=== PATIENT | male | born 1995 | race Native Hawaiian/Other Pacific Islander ===

== ENCOUNTER 2016-06-01 12:23 | Emergency (ER) | payer BC ==
[~2016-06-01] VITALS: Ht 175.3 cm; Wt 74.8 kg
[2016-06-01 12:31] VITALS: TEMP 98
[2016-06-01 13:35] VITALS: BP 119/70
== END 2016-06-01 13:37 | disposition home or self-care (01) ==
LOC: ED 12:23
DX: J06.9 Acute upper respiratory infection, unspecified (principal); M79.1 Myalgia; M54.5 Low back pain
CPT/HCPCS: 99282

== ENCOUNTER 2016-12-02 10:17 | Outpatient (CLI) | payer BC | END 2016-12-02 10:19 | disposition short-term general hospital (02) | LOC: AMB 10:17 | DX: R22.0 Localized swelling, mass and lump, head (principal); R42 Dizziness and giddiness | CPT/HCPCS: A0425; A0429 ==

== ENCOUNTER 2016-12-02 10:20 | Emergency (ER) | payer BC ==
[~2016-12-02] VITALS: Ht 175.3 cm; Wt 62.6 kg
[2016-12-02 10:31] VITALS: BP 150/79; TEMP 98.4
== END 2016-12-02 10:40 | disposition home or self-care (01) ==
LOC: ED 10:20
DX: K08.89 Other specified disorders of teeth and supporting structures (principal); K04.7 Periapical abscess without sinus
CPT/HCPCS: 99281

== ENCOUNTER 2017-12-13 22:43 | Emergency (ER) | payer OTHER ==
[~2017-12-13] VITALS: Ht 172.7 cm; Wt 62.6 kg
[2017-12-13 23:20] VITALS: BP 150/85; TEMP 98.7
== END 2017-12-13 23:20 | disposition home or self-care (01) ==
LOC: ED 22:43
PROC: 0HQFXZZ Repair Right Hand Skin, External Approach (ICD-10-PCS; principal; 2017-12-13)
DX: S61.210A Laceration without foreign body of right index finger without damage to nail, initial encounter (principal); W26.0XXA Contact with knife, initial encounter
CPT/HCPCS: 90471; 90715; 99283

== ENCOUNTER 2019-07-24 12:50 | Emergency (ER) | payer BC ==
[~2019-07-24] VITALS: Ht 172.7 cm; Wt 62.6 kg
[2019-07-24 13:40] LABS: PLATELET COUNT 355 K/uL (142-355)
[2019-07-24 13:46] LABS: POTASSIUM 3.3 mmol/L (3.6-5.2)
[2019-07-24 13:50] LABS: PARTIAL THROMBOPLASTIN TIME 21.9 SECONDS (24.5-33.6)
[2019-07-24 14:10] VITALS: BP 118/60; TEMP 98
== END 2019-07-24 14:12 | disposition short-term general hospital (02) ==
LOC: ED 13:06
PROVIDERS: Family Medicine
PROC: 30233N1 Transfusion of Nonautologous Red Blood Cells into Peripheral Vein, Percutaneous Approach (ICD-10-PCS; principal; 2019-07-24)
DX: S31.114A Laceration without foreign body of abdominal wall, left lower quadrant without penetration into peritoneal cavity, initial encounter (principal); X99.1XXA Assault by knife, initial encounter
CPT/HCPCS: 36430; 36600; 80053; 82805; 85027; 85610; 85730; 86850; 86900; 86901; 86922; 96360; 96361; 99285; P9016

== ENCOUNTER 2019-09-26 15:46 | Outpatient (CLI) | payer BC ==
[2019-09-26 17:12] LABS: PLATELET COUNT 353 K/uL (142-355)
[2019-09-26 17:20] LABS: POTASSIUM 4.5 mmol/L (3.6-5.2)
== END 2019-09-26 20:08 | disposition home or self-care (01) ==
LOC: LAB 15:46
PROVIDERS: Family Medicine
DX: T81.33XA Disruption of traumatic injury wound repair, initial encounter (principal)
CPT/HCPCS: 80048; 85027

== ENCOUNTER 2021-11-18 12:21 | Outpatient (CLI) | payer BC | END 2021-11-18 20:14 | disposition home or self-care (01) | LOC: RAD 12:21 | PROVIDERS: ATTEND Nurse Practitioner Family | DX: M25.571 Pain in right ankle and joints of right foot (principal) ==

== ENCOUNTER 2022-02-17 18:32 | Emergency (ER) | payer OTHER ==
[~2022-02-17] VITALS: Ht 172.7 cm; Wt 62.6 kg
[2022-02-17 19:35] LABS: POTASSIUM 4.1 mmol/L (3.6-5.2)
[2022-02-17 19:53] VITALS: BP 140/88; TEMP 98.1
== END 2022-02-17 19:53 | disposition home or self-care (01) ==
LOC: ED 18:32
PROVIDERS: Emergency Medicine
DX: S46.812A Strain of other muscles, fascia and tendons at shoulder and upper arm level, left arm, initial encounter (principal); X50.9XXA Other and unspecified overexertion or strenuous movements or postures, initial encounter; Y92.098 Other place in other non-institutional residence as the place of occurrence of the external cause
CPT/HCPCS: 36415; 80048; 99282

== ENCOUNTER 2022-06-08 15:24 | Emergency (ER) | payer OTHER ==
[~2022-06-08] VITALS: Ht 172.7 cm; Wt 88.9 kg
[2022-06-08 15:31] VITALS: TEMP 97.3
[2022-06-08 17:13] VITALS: BP 126/74
== END 2022-06-08 17:15 | disposition home or self-care (01) ==
LOC: ED 15:24
PROC: 0HQ0XZZ Repair Scalp Skin, External Approach (ICD-10-PCS; principal; 2022-06-08)
DX: S01.01XA Laceration without foreign body of scalp, initial encounter (principal); S06.0X0A Concussion without loss of consciousness, initial encounter; W20.8XXA Other cause of strike by thrown, projected or falling object, initial encounter; Y92.89 Other specified places as the place of occurrence of the external cause
CPT/HCPCS: 99283; J2001

== ENCOUNTER 2022-06-15 12:35 | Emergency (ER) | payer OTHER ==
[~2022-06-15] VITALS: Ht 170.2 cm; Wt 88.9 kg
[2022-06-15 12:50] VITALS: BP 138/76; TEMP 98.1
== END 2022-06-15 15:00 | disposition home or self-care (01) ==
LOC: ED 12:35
DX: K02.9 Dental caries, unspecified (principal); J20.9 Acute bronchitis, unspecified; Z20.822 Contact with and (suspected) exposure to COVID-19
CPT/HCPCS: 87502; 87635; 99283; U0001

== ENCOUNTER 2022-06-18 18:03 | Emergency (ER) | payer OTHER ==
[~2022-06-18] VITALS: Ht 170.2 cm; Wt 88.9 kg
[2022-06-18 18:20] VITALS: BP 133/65; TEMP 99
== END 2022-06-18 18:37 | disposition home or self-care (01) ==
LOC: ED 18:03
DX: S01.01XD Laceration without foreign body of scalp, subsequent encounter (principal); Z48.02 Encounter for removal of sutures; X58.XXXD Exposure to other specified factors, subsequent encounter; Y92.89 Other specified places as the place of occurrence of the external cause

== ENCOUNTER 2022-11-30 16:37 | Emergency (ER) | payer BC ==
[~2022-11-30] VITALS: Ht 170.2 cm; Wt 77.1 kg
[2022-11-30 16:56] VITALS: TEMP 98.2
[2022-11-30 18:44] LABS: PLATELET COUNT 309 K/uL (142-355)
[2022-11-30 18:47] LABS: POTASSIUM 4.1 mmol/L (3.6-5.2)
[2022-11-30 19:35] VITALS: BP 148/97
== END 2022-11-30 19:35 | disposition home or self-care (01) ==
LOC: ED 16:37
PROVIDERS: Family Medicine
DX: R51.9 Headache, unspecified (principal); J32.8 Other chronic sinusitis; E86.0 Dehydration
CPT/HCPCS: 80053; 80307; 81002; 82550; 85027; 99282